=== PATIENT | male | born 1975 | race Caucasian/White ===

== ENCOUNTER → 2017-04-22 15:09 | Outpatient (CLI) | payer OTHER, SELFPAY ==
[2017-04-23 09:50] LABS: Vitamin B12 647 pg/mL (211-911); Vitamin D,25 Hydroxy 24.6 ng/mL (29.95-100.01)
== END ==
PROVIDERS: Family Provider Family Medicine; PCP Family Medicine; Visit Provider Family Medicine
DX: R53.83 Other fatigue (principal); E55.9 Vitamin D deficiency, unspecified
CPT/HCPCS: 36415; 82306; 82607

== ENCOUNTER → 2017-12-07 17:25 | Outpatient (CLI) | payer OTHER, SELFPAY ==
--- NOTE | 2017-12-07 17:27 | RAD_ITS ---
STUDY: X-RAY CHEST REASON FOR EXAM: Male, 42 years old. Gastritis TECHNIQUE: Frontal and lateral views of the chest. COMPARISON: None. FINDINGS: The lungs are clear and expanded. There is no demonstrated pleural abnormality. Normal size heart. Normal mediastinum and brad. Normal visualized pulmonary arteries. Normal visualized aortic arch and descending thoracic aorta. Normal visualized thoracic spine. Normal visualized ribs, clavicles, and shoulders. There is no demonstrated abnormality of the visualized soft tissue structures of the upper abdomen. RAD/Chest PA and Lateral IMPRESSION: Normal x-ray examination of the chest. Electronically Signed: Ephraim Del Rosario MD at 23:46 EDT , Service support ,
== END ==
PROVIDERS: Family Provider Family Medicine; PCP Family Medicine; Referring Provider Family Medicine; Visit Provider Family Medicine
DX: K29.70 Gastritis, unspecified, without bleeding (principal)
CPT/HCPCS: 71046

== ENCOUNTER → 2018-01-03 08:07 | Outpatient (CLI) | payer OTHER, SELFPAY ==
--- NOTE | 2018-01-03 08:30 | RAD_ITS ---
STUDY: AIR-CONTRAST UPPER GI SERIES. REASON FOR EXAM: Male, 42 years old. Upper midline abdominal pain for 6 months. FLUOROSCOPY TIME (if supplied): (1:06) minutes/seconds. 20 Spot images were obtained. TECHNIQUE: The patient ingested barium. Multiple images of the esophagus, stomach and duodenum were obtained. COMPARISON: None. FINDINGS: The esophagus is unremarkable. There is no evidence of gastroesophageal reflux. No evidence of obstruction. The stomach and duodenum are unremarkable. There is no evidence of ulceration. No mass lesion is present. RAD/Upper GI Series Only IMPRESSION: Unremarkable air-contrast upper GI series. Electronically Signed: Marques Rodriguez MD at 8:56 EST Tel [phone], Service support ,
== END ==
PROVIDERS: Family Provider Family Medicine; PCP Family Medicine; Referring Provider Family Medicine; Visit Provider Family Medicine
DX: K29.70 Gastritis, unspecified, without bleeding (principal)
CPT/HCPCS: 74246

== ENCOUNTER → 2018-03-02 08:51 | Outpatient (CLI) | payer OTHER, SELFPAY ==
--- NOTE | 2018-03-02 08:56 | US_ITS ---
STUDY: ABDOMINAL ULTRASOUND - RIGHT UPPER QUADRANT REASON FOR VISIT: Male, 42 years old. Abdominal pain for 6 months. TECHNIQUE: Ultrasound evaluation of the right upper quadrant was performed with real-time and static wilson-scale imaging. TECHNICAL QUALITY: Adequate. COMPARISON: None. FINDINGS: Liver: The liver measures 14.6 cm. There is increased echogenicity consistent with fatty infiltration. Focal fatty sparing is seen in the region of the gallbladder fossa. The bile ducts are within normal limits. There is hepatic color flow. The direction of portal flow is hepatopetal. There is no demonstrated mass lesion. Gallbladder: Normal distended gallbladder. The gallbladder wall measures 2.8 mm. There is a negative sonographic Desouza's sign. There is no pericholecystic fluid. There is a solitary echogenic gallstone within the gallbladder. This measures 1.2 cm. Common Bile Duct (C.B.D.): The common bile duct measures 2.1 mm. Pancreas: There is nonvisualization of the pancreas due to overlying bowel gas. Right Kidney: Normal size of the right kidney. The right kidney measures 11.8 cm x 5.9 cm x 6.9 cm. Normal renal cortex. The right cortex measures 2.1 cm. There is no demonstrated renal mass or cyst. There is no right hydronephrosis. US/Abdomen Limited IMPRESSION: Fatty infiltration of the liver with focal fatty sparing. Solitary gallstone. Electronically Signed: Marques Rodriguez MD at 15:48 EST Tel [phone], Service support ,
--- OUTSIDE RECORDS SUMMARY | 2018-05-07 00:04 | XMS RPT_ITS ---
:1975 Author Organization OHIP Care Team Providers Name Role Phone Choco Bojorquez Attending Unavailable Choco Bojorquez Referring Unavailable Choco Bojorquez Primary Care Unavailable Choco Bojorquez Attending Unavailable Choco Bojorquez Referring Unavailable Choco Bojorquez Primary Care Unavailable Choco Bojorquez Attending Unavailable Choco Bojorquez Referring Unavailable Choco Bojorquez Primary Care Unavailable Choco Bojorquez Attending Unavailable Choco Bojorquez Referring Unavailable Choco Bojorquez Primary Care Unavailable Choco Bojorquez Attending Unavailable Choco Bojorquez Referring Unavailable Choco Bojorquez Primary Care Unavailable PROBLEMS PROBLEMS DATE TYPE CONDITION / ATTENDING STATUS SOURCE CODE 03/02/2018 Unknown K29.70 - Natalya Bojorquez [place] Gastritis, [facility] unspecified, Hospital without Repository bleeding / K29.70(ICD-10) PROCEDURES PROCEDURES No Procedure Records FoundRESULTS RESULTS HEPATOBILLIARY IMG Observed: 03/09/2018 Status: F Source: [place] W/PHARM INT 12:23 PM [facility] REPOSITORY [facility] Imaging Services [address] [place] [address] Hepatobilliary Img w/Pharm Int MR#: [id number] Acct: [id number] Name: ERA LOPEZ Rep #: [id number] : 1975 M 42 From: Favio Ford DO PCP: Choco Bojorquez MD Status: REG CLI Study: Hepatobilliary Img w/Pharm Int Date of Exam: 03/09/18 Exam# [id number] Ordering Dr: Riki Bojorquez MD CLINICAL: 42-year-old male with reported history of abdominal pain. RADIONUCLIDE HEPATOBILIARY SCINTIGRAPHY COMPARISON: Abdominal ultrasound report 03/02/2018 FINDINGS: Following the intravenous administration of 5.5 mCi of 99m Tc Mebrofenin, hepatobiliary images reveal: 1. Relatively prompt and homogeneous radiopharmaceutical concentration is noted by a normal sized liver. No parenchymal defects are identified. 2. Gallbladder activity is identified at 30 minutes post radiopharmaceutical administration. 3. Small intestinal tract is observed at 30 minutes following tracer injection. 4. Washout of the radiopharmaceutical by the hepatic parenchyma appears qualitatively normal. Cholecystokinin (0.02 ug/kg) was administered intravenously over a 30-minute period. The post CCK gallbladder ejection fraction calculated at 31 minutes following Cholecystokinin administration was noted to be 28.0 % (normal greater than 35%). NM/Hepatobilliary Img w/Pharm Int IMPRESSION: 1. ABNORMAL 99m Tc Mebrofenin hepatobiliary imaging examination with Cholecystokinin. A. A gallbladder ejection fraction calculated to be less than 35% following the administration of Cholecystokinin is consistent with the presence of functional hepatobiliary disease (gallbladder and/or sphincter of Oddi dyskinesia) and/or organic hepatobiliary disease (chronic acalculous cholecystitis and/or cystic duct syndrome) in patients with intermediate to high pretest probabilities of hepatobiliary illness. (Janet Hercules et al, Journal of Nuclear Medicine 32:1695, 1990). Electronically Signed: Favio DO Logan at 10:34 EST Tel , Service support , CC: Choco Bojorquez MD Aids Social Worker: Signed ABDOMEN LIMITED Observed: 03/02/2018 Status: F Source: [employer] 8:56 AM [facility] REPOSITORY [facility] Imaging Services [address] [place] [address] Abdomen Limited MR#: [id number] Acct: [id number] Name: ERA LOPEZ Rep #: [id number] : 1975 M 42 From: Marques Rodriguez MD PCP: Choco Bojorquez MD Status: REG CLI Study: Abdomen Limited Date of Exam: 03/02/18 Exam# [id number] Ordering Dr: Riki Bojorquez MD STUDY: ABDOMINAL ULTRASOUND - RIGHT UPPER QUADRANT REASON FOR VISIT: Male, 42 years old. Abdominal pain for 6 months. TECHNIQUE: Ultrasound evaluation of the right upper quadrant was performed with real-time and static wilson-scale imaging. TECHNICAL QUALITY: Adequate. COMPARISON: None. FINDINGS: Liver: The liver measures 14.6 cm. There is increased echogenicity consistent with fatty infiltration. Focal fatty sparing is seen in the region of the gallbladder fossa. The bile ducts are within normal limits. There is hepatic color flow. The direction of portal flow is hepatopetal. There is no demonstrated mass lesion. Gallbladder: Normal distended gallbladder. The gallbladder wall measures 2.8 mm. There is a negative sonographic Desouza's sign. There is no pericholecystic fluid. There is a solitary echogenic gallstone within the gallbladder. This measures 1.2 cm. Common Bile Duct (C.B.D.): The common bile duct measures 2.1 mm. Pancreas: There is nonvisualization of the pancreas due to overlying bowel gas. Right Kidney: Normal size of the right kidney. The right kidney measures 11.8 cm x 5.9 cm x 6.9 cm. Normal renal cortex. The right cortex measures 2.1 cm. There is no demonstrated renal mass or cyst. There is no right hydronephrosis. US/Abdomen Limited IMPRESSION: Fatty infiltration of the liver with focal fatty sparing. Solitary gallstone. Electronically Signed: Marques Rodriguez MD at 15:48 EST Tel [phone], Service support , CC: Choco Bojorquez MD Aids Social Worker: Signed UPPER GI SERIES Observed: 01/03/2018 Status: F Source: [facility] 8:13 AM [facility] REPOSITORY [facility] Imaging Services [address] [place] [address] [place] [address] Upper GI Series Only MR#: [id number] Acct: [id number] Name: JOHNMARIA ELENAE Hernandez Rep #: [id number] : 1975 M 42 From: Marques Rodriguez MD PCP: Choco Bojorquez MD Status: REG CLI Study: Upper GI Series Only Date of Exam: 01/03/18 Exam# [id number] Ordering Dr: Riki Bojorquez MD STUDY: AIR-CONTRAST UPPER GI SERIES. REASON FOR EXAM: Male, 42 years old. Upper midline abdominal pain for 6 months. FLUOROSCOPY TIME (if supplied): (1:06) minutes/seconds. 20 Spot images were obtained. TECHNIQUE: The patient ingested barium. Multiple images of the esophagus, stomach and duodenum were obtained. COMPARISON: None. FINDINGS: The esophagus is unremarkable. There is no evidence of gastroesophageal reflux. No evidence of obstruction. The stomach and duodenum are unremarkable. There is no evidence of ulceration. No mass lesion is present. RAD/Upper GI Series Only IMPRESSION: Unremarkable air-contrast upper GI series. Electronically Signed: Marques Rodriguez MD at 8:56 EST Tel [phone], Service support , CC: Choco Bojorquez MD Aids Social Worker: Signed CHEST PA AND LATERAL Observed: 12/07/2017 Status: F Source: [place] 5:27 PM [facility] REPOSITORY [facility] Imaging Services [address] [place] [address] Chest PA and Lateral MR#: [id number] Acct: [id number] Name: ERA LOPEZ Rep #: [id number] : 1975 M 42 From: Ephraim Del Rosario MD PCP: Choco Bojorquez MD Status: REG CLI Study: Chest PA and Lateral Date of Exam: 12/07/17 Exam# [id number] Ordering Dr: Riki Bojorquez MD STUDY: X-RAY CHEST REASON FOR EXAM: Male, 42 years old. Gastritis TECHNIQUE: Frontal and lateral views of the chest. COMPARISON: None. FINDINGS: The lungs are clear and expanded. There is no demonstrated pleural abnormality. Normal size heart. Normal mediastinum and brad. Normal visualized pulmonary arteries. Normal visualized aortic arch and descending thoracic aorta. Normal visualized thoracic spine. Normal visualized ribs, clavicles, and shoulders. There is no demonstrated abnormality of the visualized soft tissue structures of the upper abdomen. RAD/Chest PA and Lateral IMPRESSION: Normal x-ray examination of the chest. Electronically Signed: Ephraim Del Rosario MD at 23:46 EDT , Service support , CC: Choco Bojorquez MD Aids Social Worker: Signed VITAMIN B12 Collected: 04/22/2017 Status: F Source: [place] 3:14 PM [facility] REPOSITORY Order Comment: Order Date: 04/20/17 Order Info: 2132-9 - B12 Order Info: [id number] - VITD25 TYPE CODE TESTS RESULT OUT OF RANGE REFERENCE UNITS LAB L503.0105 211-911 pg/mL Normal Vitamin B12 647 Performed By: #### L503.0105, L506.1000 #### [facility] [address] [place], [address] VITAMIN D,25 HYDROXY Collected: 04/22/2017 Status: F Source: [place] 3:14 PM [facility] REPOSITORY Order Comment: Order Date: 04/20/17 Order Info: 2132-9 - B12 Order Info: 44859-8 - VITD25 TYPE CODE TESTS RESULT OUT OF REFERENCE UNITS RANGE LAB L506.1000 29.95-100.01 ng/mL Low Vitamin D 24.6 25-OH Result Comment: Vitamin D 25(OH) Status Range Deficiency <20 ng/mL (50nmol/L) Insuffciency 20 - 30 ng/mL (50 - 75 nmol/L) Sufficiency 30 - 100 ng/mL (75 - 250 nmol/L) Toxicity >100 ng/mL (>250 nmol/L) Performed By: #### L503.0105, L506.1000 #### [facility] [address] [place], [address] ALLERGIES ALLERGIES No Allergies Records FoundENCOUNTERS ENCOUNTERS ADMIT/DISCHARGE ACCOUNT ADMITTING ENCOUNTER LOCATION SOURCE NUMBER CLASS 03/09/2018 [id number] Ambulatory [place] 8 [facility] ing:NM Repository 03/02/2018 [id number] Ambulatory [place] 0 [facility] ing:US Repository 01/03/2018 [id number] Ambulatory [place] 9 [facility] ing:RAD Repository 12/07/2017 [id number] Ambulatory [place] 8 [facility] ing:MTRAD Repository 04/22/2017 [id number] Ambulatory [place] 5 [facility] ing:MTLAB Repository PAYERS PAYERS ENCOUNTER GUARANTOR PAYER SUBSCRIBER SOURCE 03/09/2018 ERA Ng Primary ERA [id number] Insurance:MEDICAL WALTERSDOB: [facility] [id number] Number: Repository [id number]: 330 [id number] [phone] (HP) Date:4967-06-18VJ [address] [address]OK: 03/09/2018 Secondary NOT GIVENUNK [place] Insurance:SELF PAY [facility] Number: Effective Repository Date:2018-03-08 03/02/2018 ERA R Primary ERA R [place] [id number] Insurance:MEDICAL WALTERSDOB: [facility] [id number] [place] Number: Repository [id number]: 330 [id number] [phone] (HP) Date:0956-60-71LY [address] [address]TD: 03/02/2018 Secondary NOT GIVENUNK [place] Insurance:SELF PAY [facility] Number: Effective Repository Date:2018-02-23 01/03/2018 ERA R Primary ERA R [place] [id number] Insurance:MEDICAL WALTERSDOB: [facility] [id number] [place], [place] Number: Repository [id number]: 330 [id number] [phone] (HP) Date:1438-23-29WY [address] [address]GL: 01/03/2018 Secondary NOT GIVENUNK [place] Insurance:SELF PAY [facility] Number: Effective Repository Date:2017-12-28 12/07/2017 ERA R Primary ERA R [place] [id number] Insurance:MEDICAL WALTERSDOB: [facility] [id number]: Repository [id number]: 330 [id number] [phone] (HP) Date:8116-36-29LR [address] [address]FP: 12/07/2017 Secondary NOT GIVENUNK [place] Insurance:SELF PAY [facility] Number: Effective Repository Date:2017-12-07 04/22/2017 Era R Primary Era R [place] [id number] Insurance:MEDICAL NelytersB: [facility] [id number] Number: Repository [id number]: [phone] [id number] [phone] () Date:2737-07-79CU [address] [place] [address]DM: 04/22/2017 Secondary NOT GIVENUNK [place] Insurance:SELF PAY [facility] Number: Effective Repository Date:2017-04-22
== END ==
PROVIDERS: Family Provider Family Medicine; PCP Family Medicine; Referring Provider Family Medicine; Visit Provider Family Medicine
DX: R10.9 Unspecified abdominal pain (principal)
CPT/HCPCS: 76705

== ENCOUNTER → 2018-03-09 12:21 | Outpatient (CLI) | payer OTHER, SELFPAY ==
--- NOTE | 2018-03-09 12:23 | NM_ITS ---
CLINICAL: 42-year-old male with reported history of abdominal pain. RADIONUCLIDE HEPATOBILIARY SCINTIGRAPHY COMPARISON: Abdominal ultrasound report 03/02/2018 FINDINGS: Following the intravenous administration of 5.5 mCi of 99m Tc Mebrofenin, hepatobiliary images reveal: 1. Relatively prompt and homogeneous radiopharmaceutical concentration is noted by a normal sized liver. No parenchymal defects are identified. 2. Gallbladder activity is identified at 30 minutes post radiopharmaceutical administration. 3. Small intestinal tract is observed at 30 minutes following tracer injection. 4. Washout of the radiopharmaceutical by the hepatic parenchyma appears qualitatively normal. Cholecystokinin (0.02 ug/kg) was administered intravenously over a 30-minute period. The post CCK gallbladder ejection fraction calculated at 31 minutes following Cholecystokinin administration was noted to be 28.0 % (normal greater than 35%). SD/Hepatobilliary Img w/Pharm Int IMPRESSION: 1. ABNORMAL 99m Tc Mebrofenin hepatobiliary imaging examination with Cholecystokinin. A. A gallbladder ejection fraction calculated to be less than 35% following the administration of Cholecystokinin is consistent with the presence of functional hepatobiliary disease (gallbladder and/or sphincter of Oddi dyskinesia) and/or organic hepatobiliary disease (chronic acalculous cholecystitis and/or cystic duct syndrome) in patients with intermediate to high pretest probabilities of hepatobiliary illness. (Janet Hercules et al, Journal of Nuclear Medicine 32:1695, 1990). Electronically Signed: Favio Ford DO at 10:34 EST Tel , Service support ,
--- OUTSIDE RECORDS SUMMARY | 2018-05-11 10:33 | XMS RPT_ITS ---
[...] CODE 03/02/2018 Unknown K29.70 - Natalya Bojorquez [place] Gastritis, [facility] unspecified, Hospital without Repository bleeding / K29.70(ICD-10) PROCEDURES PROCEDURES No Procedure Records FoundRESULTS RESULTS HEPATOBILLIARY IMG Observed: 03/09/2018 Status: F Source: [place] W/PHARM INT 12:23 PM [facility] REPOSITORY [facility] Imaging Services [address] [place] [address] Hepatobilliary Img w/Pharm Int MR#: [id number] Acct: [id number] Name: ERA LOPEZ Rep #: [id number] : 1975 M 42 From: Favio Ford DO PCP: Choco Bojorquez MD Status: REG CLI Study: Hepatobilliary Img w/Pharm Int Date of Exam: 03/09/18 Exam# [id number] Ordering Dr: Riki Bojorquez MD CLINICAL: 42-year-old [...] Service support , CC: Choco Bojorquez MD Sap Functional Analyst: Signed ABDOMEN LIMITED Observed: 03/02/2018 Status: F Source: [place] 8:56 AM [facility] REPOSITORY [facility] Imaging Services [address] [place] [address] Abdomen Limited MR#: [id number] Acct: [id number] Name: ERA LOPEZ Rep #: [id number] : 1975 M 42 From: Marques Rodriguez MD PCP: Choco Bojorquez MD Status: REG CLI Study: Abdomen Limited Date of Exam: 03/02/18 Exam# [id number] Ordering Dr: Riki Bojorquez MD STUDY: ABDOMINAL [...] Marques Rodriguez MD at 15:48 EST Tel [phone], Service support , CC: Choco Bojorquez MD Sap Functional Analyst: Signed UPPER GI SERIES Observed: 01/03/2018 Status: F Source: [facility] 8:13 AM [facility] REPOSITORY [facility] Imaging Services [address] [place] [address] [place] [address] Upper GI Series Only MR#: [id number] Acct: [id number] Name: JOHNMARIA ELENAE Hernandez Rep #: [id number] : 1975 M 42 From: Marques Rodriguez MD PCP: Choco Bojorquez MD Status: REG CLI Study: Upper GI Series Only Date of Exam: 01/03/18 Exam# [id number] Ordering Dr: Riki Bojorquez MD STUDY: AIR-CONTRAST [...] Marques Rodriguez MD at 8:56 EST Tel [phone], Service support , CC: Choco Bojorquez MD Sap Functional Analyst: Signed CHEST PA AND LATERAL Observed: 12/07/2017 Status: F Source: [place] 5:27 PM [facility] REPOSITORY [facility] Imaging Services [address] [place] [address] Chest PA and Lateral MR#: [id number] Acct: [id number] Name: ERA LOPEZ Rep #: [id number] : 1975 M 42 From: Ephraim Del Rosario MD PCP: Choco Bojorquez MD Status: REG CLI Study: Chest PA and Lateral Date of Exam: 12/07/17 Exam# [id number] Ordering Dr: Riki Bojorquez MD STUDY: X-RAY [...] Service support , CC: Choco Bojorquez MD Sap Functional Analyst: Signed VITAMIN B12 Collected: 04/22/2017 Status: F Source: [place] 3:14 PM [facility] REPOSITORY Order Comment: Order Date: 04/20/17 Order Info: 2132-9 - B12 Order Info: 75511-5 - VITD25 TYPE CODE TESTS RESULT OUT OF RANGE REFERENCE UNITS LAB L503.0105 211-911 pg/mL Normal Vitamin B12 647 Performed By: #### L503.0105, L506.1000 #### [facility] [address] [place], [address] VITAMIN D,25 HYDROXY Collected: 04/22/2017 Status: F Source: [place] 3:14 PM [facility] REPOSITORY Order Comment: Order Date: 04/20/17 Order Info: 2132-9 - B12 Order Info: 50691-5 - VITD25 TYPE CODE TESTS RESULT OUT OF REFERENCE UNITS RANGE LAB L506.1000 29.95-100.01 ng/mL Low Vitamin D 24.6 25-OH Result Comment: Vitamin D 25(OH) Status Range Deficiency <20 ng/mL (50nmol/L) Insuffciency 20 - 30 ng/mL (50 - 75 nmol/L) Sufficiency 30 - 100 ng/mL (75 - 250 nmol/L) Toxicity >100 ng/mL (>250 nmol/L) Performed By: #### L503.0105, L506.1000 #### [facility] [address] [place], [address] ALLERGIES ALLERGIES No Allergies Records FoundENCOUNTERS ENCOUNTERS ADMIT/DISCHARGE ACCOUNT ADMITTING ENCOUNTER LOCATION SOURCE NUMBER CLASS 03/09/2018 [id number] Ambulatory [place] 8 [facility] ing:NM Repository 03/02/2018 [id number] Ambulatory [place] 0 [facility] ing:US Repository 01/03/2018 [id number] Ambulatory [place] 9 [facility] ing:RAD Repository 12/07/2017 [id number] Ambulatory [place] 8 [facility] ing:MTRAD Repository 04/22/2017 [id number] Ambulatory [place] 5 [facility] ing:MTLAB Repository PAYERS PAYERS ENCOUNTER GUARANTOR PAYER SUBSCRIBER SOURCE 03/09/2018 ERA Ng Primary ERA [id number] Insurance:MEDICAL WALTERSDOB: [facility] [id number] Number: Repository [address]Zuj: 330 [id number] [phone] (HP) Date:3797-81-05KH [address] [address]VK: 03/09/2018 Secondary NOT GIVENUNK [place] Insurance:SELF PAY [facility] Number: Effective Repository Date:2018-03-08 03/02/2018 ERA R Primary ERA R [place] [id number] Insurance:MEDICAL WALTERSDOB: [facility] [id number] Number: Repository [address]Omm: 330 [id number] [phone] (HP) Date:6266-97-71FN [address] [address]JS: 03/02/2018 Secondary NOT GIVENUNK [place] Insurance:SELF PAY [facility] Number: Effective Repository Date:2018-02-23 01/03/2018 ERA R Primary ERA R [place] [id number] Insurance:MEDICAL WALTERSDOB: [facility] [id number] Number: Repository [id number]: 330 [id number] [phone] (HP) Date:2313-17-08SP [address] [address]KZ: 01/03/2018 Secondary NOT GIVENUNK [place] Insurance:SELF PAY [facility] Number: Effective Repository Date:2017-12-28 12/07/2017 ERA R Primary ERA R [place] [id number] Insurance:MEDICAL WALTERSDOB: [facility] [id number] Number: Repository [address]Clk: 330 [id number] [phone] (HP) Date:0318-79-87FY [address] [address]VQ: 12/07/2017 Secondary NOT GIVENUNK [place] Insurance:SELF PAY [facility] Number: Effective Repository Date:2017-12-07 04/22/2017 Era R Primary Era R [place] [id number] Insurance:MEDICAL NelytersB: [facility] [id number] Number: Repository [id number]: (413) [id number] [phone] () Date:0698-61-99MQ [address] [place] [address]BI: 04/22/2017 Secondary NOT GIVENUNK [place] Insurance:SELF PAY [facility] Number: Effective Repository Date:2017-04-22
== END ==
PROVIDERS: Family Provider Family Medicine; PCP Family Medicine; Referring Provider Family Medicine; Visit Provider Family Medicine
DX: R10.9 Unspecified abdominal pain (principal)
CPT/HCPCS: 78227; A9537; J2805

== ENCOUNTER → 2018-03-22 15:39 | Outpatient (CLI) | payer OTHER, SELFPAY ==
[2018-03-17 15:44] VITALS: BMI 39.3
[2018-03-22 17:31] LABS: Absolute Lymphocyte Count 1.95 X10^3/ul (0.83-4.51); Absolute Neutrophil Count 2.9 X10^3/uL (2.0-7.7); Basophil# 0.02 X10^3/uL; Basophil% 0.4 % (0-1); Eosinophil# 0.11 X10^3/uL; Hematocrit 45.7 % (40-54); Hemoglobin 15.7 g/dl (13.0-16.5); Lymphocyte # 1.95 X10^3/ul (4.0); Lymphocyte % 36.2 % (19-41); Mean Corp Hgb Conc 34.4 g/gl (32-36); Mean Corpuscular Hgb 30.1 pg (27.0-32.0); Mean Corpuscular Volume 87.7 fL (80-94); Mean Platelet Vol. 12.4 fl (6.2-12.0); Monocyte# 0.41 X10^3/uL; Monocyte% 7.6 % (0-10); Neutrophil # 2.88 X10^3/uL (2.7-7.7); Neutrophil % 53.4 % (47-70); Platelet Count 174 K/mm3 (150-450); RBC Distribution Width CV 13.3 % (11.6-14.6); RBC Distribution Width SD 42.6 fl (35.1-43.9); Red Blood Count 5.21 M/mm3 (4.6-6.2); White Blood Count 5.4 K/mm3 (4.4-11.0)
[2018-03-22 17:35] LABS: POSITIVE COUNT NO; POSITIVE DIFFERENTIAL NO; POSITIVE MORPHOLOGY NO
[2018-03-22 17:56] LABS: ALB/GLOB Ratio 1.2 RATIO (0.9-2.4); AST(SGOT) 18 U/L (15-37); Alanine Aminotransfer ALT/SGPT 41 U/L (16-61); Albumin, Serum 4.2 g/dL (3.2-5.0); Alkaline Phosphatase 53 U/L (45-117); Anion Gap 10 (5-15); BUN 7 mg/dL (7-18); BUN/Creat Ratio 7.7 RATIO (10-20); Chloride 105 mmol/L (98-107); Creatinine, Serum 0.92 mg/dL (0.70-1.30); EST Glomerular Filtration Rate 97 mL/min (>60); Est Glom Filt Rate - Afr Amer 118 mL/min (>60); Globulin 3.5 g/dL (2.2-4.2); Glucose 84 mg/dL (74-106); Potassium 3.7 mmol/L (3.5-5.1); Protein, Total 7.7 g/dL (6.4-8.2); Sodium Level 141 mmol/L (136-145)
== END ==
PROVIDERS: Family Provider Family Medicine; PCP Family Medicine; Referring Provider Family Medicine; Visit Provider Family Medicine
DX: R10.9 Unspecified abdominal pain (principal)
CPT/HCPCS: 36415; 80053; 85025

== ENCOUNTER 2018-04-14 07:20 | Day surgery (SDC) | payer OTHER, SELFPAY ==
[2018-04-01 08:45] VITALS: BMI 39.3
[2018-04-05 15:39] VITALS: BMI 39.3
[2018-04-14] VITALS (7 sets, daily range): BP systolic 116–137; BP diastolic 63–89; PULSE 55–77; RESP 16–18; TEMP 36.3–36.9; O2SAT 92–100; BMI 38.2
--- NOTE | 2018-04-14 07:31 | EKG12_ITS ---
Test Reason : PRE-OP Blood Pressure : / mmHG Vent. Rate : 059 BPM Atrial Rate : 059 BPM P-R Int : 174 ms QRS Dur : 102 ms QT Int : 404 ms P-R-T Axes : 022 -11 010 degrees QTc Int : 399 ms Sinus bradycardia Otherwise normal ECG No previous ECGs available Confirmed by LISA GUTIÉRREZ, KEVIN ([id number]), digital editor RITCHIE IBARRA ([id number]) on 04/19/2018 1:49:01 PM Referred By: Jad Fish Confirmed By:KEVIN GONZALEZ MD
--- NOTE | 2018-04-14 09:00 | GALL_PTH ---
PATIENT: ERA LOPEZ LOC: [facility] U#:[id number] AGE/SX: 42/M ROOM: RE04/14/[address]: Dr. Jad Fish MD : [id number] BED: DIS: 04/14/2018 SPEC #: [id number] RECD: 04/14/18 14:56 STATUS: PJ REVera #: [id number] BRENNAN: 04/14/18 09:[address]: Jad Fish DEPT: SURGICAL PATHOLOGY RECD BY: Adalid Villegas ENTERED: 04/15/18 11:25 SP TYPE: DANIEL ALICIA DR: Dr. Choco Bojorquez MD Tissues: Gallbladder, NOS Procedures: Surgery Specimen Level III HEADER OPERATION: Laparoscopic cholecystectomy with IOC PRE-OP DIAGNOSIS: Chronic cholecystitis TISSUE SUBMITTED: Gallbladder MICROSCOPIC DIAGNOSIS Gallbladder, cholecystectomy: Chronic cholecystitis, cholelithiasis and cholesterolosis. SJ:amarjit 04/18/18 MICROSCOPIC DESCRIPTION Slides are reviewed. GROSS DESCRIPTION Received is one container labeled with the patient's name and designated gallbladder. The specimen consists of a gallbladder measuring 8 cm in length and up to 3 cm in diameter. The external surface is pink-godinez, smooth and glistening for the most part. Focally it is granular, hemorrhagic and contains cautery artifact. The gallbladder contains two zwmtn-ownghumoy-fmjcv mulberry stones each measuring 1.5 cm in greatest dimension. The mucosa is bile-stained and without any mass lesions. The gallbladder wall measures up to 1 cm in thickness. Increased amount of subserosal fat is noted. Geotechnical Laboratory Technician sections from the gallbladder and the cystic duct are submitted in one cassette. / SJ:rg 04/15/18 TC:3 [facility]: [id number]
--- NOTE | 2018-04-14 09:00 | RAD_ITS ---
STUDY: INTRAOPERATIVE CHOLANGIOGRAM. REASON FOR EXAM: Male, 42 years old. Laparoscopic cholecystectomy. FLUOROSCOPY TIME (if supplied): (0:10) minutes/seconds TECHNIQUE: An intraoperative quadrant was performed by the surgeon. Imaging was submitted. COMPARISON: None. FINDINGS: The common bile duct is not dilated. No intraluminal filling defect is seen. There is free flow of contrast into the duodenum. RAD/Cholangiogram/ O R,Initial IMPRESSION: Unremarkable intraoperative cholangiogram. Electronically Signed: Marques Rodriguez, at 15:04 EST , Service support ,
[2018-04-14] MEDS: Bupiv/Epi 0.25% 30 ML Vial (09:45)
--- NOTE | 2018-04-14 10:03 | PCM.OPRPT ---
Problem List (1) Gallstone Status: Acute Qualifiers: Cholecystitis presence: with cholecystitis Cholecystitis acuity: chronic Biliary obstruction: without biliary obstruction Qualified Code(s): K80.10 - Calculus of gallbladder with chronic cholecystitis without obstruction Report of Operation Date of Procedure: 04/14/18 Pre-Operative Diagnosis: Chronic cholecystitis and cholelithiasis Post-Operative Diagnosis: Same Surgery/Procedure Performed:: Laparoscopic cholecystectomy with cholangiogram Specimen's removed: Gallbladder and contents Description of Procedure: After obtaining informed consent patient was brought back to the operating room. General anesthesia was induced. The abdomen was prepped and draped in usual sterile fashion. A small midline incision was made superior to the umbilicus and deepened to the level of fascia. The fascia was elevated and incised. Next the peritoneum was elevated and incised in the same fashion. Finger sweep was performed and the Mehta trocar was placed into the abdomen. The balloon was inflated. The abdomen was inflated to 15 mmHg. Next a camera was introduced into the abdomen and the abdomen was inspected. Next under direct visualization three 5-mm ports were placed one subxiphoid and 2 subcostal. Next the gallbladder was elevated and retracted toward the right shoulder. The peritoneum was stripped from the gallbladder. There was inflammation at the the infundibular portion of the gallbladder. The infundibulum was located and retracted laterally. Next the triangle of Calot was dissected and the cystic duct and cystic artery were identified. Cholangiograms were performed. The Manuel clamp was used to clamp across the infundibulum and the catheter needle was inserted into the gallbladder. Under fluoroscopy contrast was instilled into the gallbladder and the common duct, cystic duct as well as proximal hepatic ducts were identified. There was good filling of the duodenum. There were no filling defects noted in the common bile duct. The clamp was removed as well as the needle and the infundibulum was grasped once more. Three hemolock clips were placed across the cystic duct. The cystic duct was then divided leaving 2 clips on the stump. The cystic artery was clipped and divided in the same fashion. The hook cautery was then used to take the gallbladder off of the gallbladder bed. Hemostasis was obtained. Gallbladder fossa was irrigated and no active bleeding or bile leakage was noted. Next the camera switched to a 5 mm camera and introduced in the subxiphoid port. An Endopouch bag was placed through the umbilical port and the gallbladder was placed into it. The gallbladder was then removed through the umbilical incision. The camera was then reinserted through the umbilical port. The gallbladder fossa was inspected once more and noted to be hemostatic with no leaking bile. The abdomen was suctioned dry. The 5 mm ports were removed under direct visualization. The umbilical port was then removed and the air was removed from the abdomen. Next using an 0 Vicryl suture the umbilical fascia was closed in a pyzzmz-fe-ubhfw fashion. The umbilical port site was irrigated local anesthetic was administered to all the incisions. All the incisions were closed with interrupted subcuticular 4-0 Monocryl sutures followed by Steri-Strips and dressings. The patient was awoken and taken to PACU in stable condition. - Admit VTE Documentation VTE Mechan Device Prophylaxis: SCD's
--- NOTE | 2018-04-14 10:10 | DCINST_ITS ---
Discharge Diet: Light diet - advance as tolerated Discharge Activity: Return to Normal Activity, May Not Drive - for 2-3 days or while taking narcotic pain medicataions., - - Do not drive, work heavy equipment or sign legal documents for 24 hours. May shower in (days): 1 - with the bandage in place. Additional Activity Instructions:: Pain medication may cause nausea. You should typically eat light foods as you take your pain medications. Pain medication may also cause constipation. If this is a problem for you, please discuss with your doctor. Call your doctor if your incision/area has: Continuous Slow Oozing, Sudden Increased Bleeding, Increased Pain/ Swelling, Increased Redness, Foul Smelling Discharge, Fever of 101 or Higher Call your doctor if you observe: Fever of 101 or Higher Suture Line Care: Avoid Pulling/Pushing, Avoid Pinching/Bending Additional Dressing/Incision Instructions:: Leave operative bandaids on for 2 days. When you remove dressing, leave Steri-Strips on until your follow-up appointment, or until the Steri-Strips fall off on their own. Allergies/Adverse Reactions: Allergies codeine Allergy (Mild, Verified 04/14/18 07:55) Unknown Penicillins Allergy (Mild, Verified 04/14/18 07:55) Unknown Medications to take at Discharge lisinopril 10 mg-hydrochlorothiazide 12.5 mg tablet 1 tab PO DAILY 04/05/18 Oxycodone HCl/Acetaminophen [Percocet 5/325] 1 - 2 tablet PO Q4H PRN PRN 7 Days #40 tablet 04/14/18 The following prescriptions were given: Oxycodone HCl/Acetaminophen [Percocet 5/325] 1 - 2 tablet PO Q4H PRN PRN 7 Days #40 tablet PRN Reason: Pain Primary Care Physician: Riki Bojorquez MD [Primary Care Provider] - Test Results: Test results from this visit will be discussed in further detail at your follow- up appointment, if applicable. Please Follow Up With: Jad Fish MD When: Please call to schedule 2 week follow up appointment. [phone]
== END 2018-04-14 13:38 | disposition home or self-care (01) ==
LOC: SDC 07:20 → AC 07:21
PROVIDERS: Family Provider Family Medicine; PCP Family Medicine; Referring Provider Surgery; Visit Provider Surgery
PROC: (CPT 47610; principal; 2018-04-14 08:40)
DX: K80.12 Calculus of gallbladder with acute and chronic cholecystitis without obstruction (principal); I10 Essential (primary) hypertension; Z79.899 Other long term (current) drug therapy; Z87.891 Personal history of nicotine dependence; G47.30 Sleep apnea, unspecified
CPT/HCPCS: 00790; 47563; 74300; 76000; 88304; 93005; J7120; J2405

== ENCOUNTER → 2019-09-22 10:04 | Outpatient (CLI) | payer OTHER, SELFPAY ==
[2018-04-14 07:55] VITALS: BMI 38.2
[2019-09-22 13:08] LABS: ALB/GLOB Ratio 1.1 RATIO (0.9-2.4); AST(SGOT) 13 U/L (15-37); Alanine Aminotransfer ALT/SGPT 30 U/L (16-61); Albumin, Serum 3.8 g/dL (3.2-5.0); Alkaline Phosphatase 43 U/L (45-117); Anion Gap 3 (5-15); BUN 13 mg/dL (7-18); BUN/Creat Ratio 13.5 RATIO (10-20); Calcium,Total 8.7 mg/dL (8.5-10.1); Chloride 108 mmol/L (98-107); Cholesterol 147 mg/dL (200); Creatinine, Serum 0.96 mg/dL (0.70-1.30); EST Glomerular Filtration Rate 91 mL/min (>60); Est Glom Filt Rate - Afr Amer 110 mL/min (>60); Globulin 3.6 g/dL (2.2-4.2); Glucose 88 mg/dL (74-106); High Density Lipoprotein 48 mg/dL; Potassium 4.5 mmol/L (3.5-5.1); Protein, Total 7.4 g/dL (6.4-8.2); Sodium Level 140 mmol/L (136-145); Triglycerides 95 mg/dL; Very Low Density Lipoprotein 19 mg/dL (5-40); Vitamin B12 483 pg/mL (211-911); Vitamin D,25 Hydroxy 56.2 ng/mL
== END ==
PROVIDERS: PCP Family Medicine; Referring Provider Family Medicine; Visit Provider Family Medicine
DX: I10 Essential (primary) hypertension (principal); D51.9 Vitamin B12 deficiency anemia, unspecified; E55.9 Vitamin D deficiency, unspecified
CPT/HCPCS: 36415; 80053; 80061; 82306; 82607

== ENCOUNTER → 2020-10-10 15:02 | Outpatient (CLI) | payer OTHER, SELFPAY ==
[2020-10-10 19:46] LABS: M R Staph aureus DNA By PCR Negative (Negative); Probe Check PASS; Specimen Processing Control PASS
== END ==
PROVIDERS: PCP Family Medicine; Referring Provider Internal Medicine Pulmonary Disease; Visit Provider Internal Medicine Pulmonary Disease
DX: H66.90 Otitis media, unspecified, unspecified ear (principal)
CPT/HCPCS: 87641

== ENCOUNTER → 2020-11-15 09:53 | Outpatient (CLI) | payer OTHER, SELFPAY ==
[2020-11-15 12:40] LABS: Anion Gap 7 (5-15); BUN 15 mg/dL (7-18); BUN/Creat Ratio 14.2 RATIO (10-20); Calcium,Total 9.2 mg/dL (8.5-10.1); Chloride 105 mmol/L (98-107); Cholesterol 158 mg/dL (200); Creatinine, Serum 1.06 mg/dL (0.70-1.30); EST Glomerular Filtration Rate 81 mL/min (>60); Est Glom Filt Rate - Afr Amer 98 mL/min (>60); Glucose 92 mg/dL (74-106); High Density Lipoprotein 43 mg/dL; Potassium 3.6 mmol/L (3.5-5.1); Sodium Level 140 mmol/L (136-145); Triglycerides 102 mg/dL; Very Low Density Lipoprotein 20 mg/dL (5-40)
== END ==
PROVIDERS: PCP Family Medicine; Referring Provider Family Medicine; Visit Provider Family Medicine
DX: I10 Essential (primary) hypertension (principal)
CPT/HCPCS: 36415; 80048; 80061

== ENCOUNTER → 2022-02-02 | Outpatient (CLI) | payer OTHER, SELFPAY ==
[2022-02-02 12:20] LABS: Vitamin B12 594 pg/mL (211-911)
[2022-02-02 12:35] LABS: Anion Gap 8 (5-15); BUN 14 mg/dL (7-18); BUN/Creat Ratio 15.2 RATIO (10-20); Calcium,Total 9.1 mg/dL (8.5-10.1); Chloride 107 mmol/L (98-107); Cholesterol 151 mg/dL (200); Creatinine, Serum 0.92 mg/dL (0.70-1.30); EST Glomerular Filtration Rate 94 mL/min (>60); Est Glom Filt Rate - Afr Amer 114 mL/min (>60); Glucose 98 mg/dL (74-106); High Density Lipoprotein 44 mg/dL; Potassium 4.2 mmol/L (3.5-5.1); Sodium Level 139 mmol/L (136-145); Triglycerides 97 mg/dL; Very Low Density Lipoprotein 19 mg/dL (5-40)
== END | disposition home or self-care (01) ==
LOC: MTLAB 09:27
PROVIDERS: PCP Family Medicine; Referring Provider Family Medicine; Visit Provider Family Medicine
DX: I10 Essential (primary) hypertension (principal); N52.9 Male erectile dysfunction, unspecified; D51.9 Vitamin B12 deficiency anemia, unspecified; E55.9 Vitamin D deficiency, unspecified
CPT/HCPCS: 36415; 80048; 80061; 82306; 82607; 84403

== ENCOUNTER → 2023-03-15 | Outpatient (CLI) | payer BC, SELFPAY | END | disposition home or self-care (01) | PROVIDERS: PCP Family Medicine; Referring Provider Otolaryngology; Visit Provider Otolaryngology | DX: H92.10 Otorrhea, unspecified ear (principal) | CPT/HCPCS: 87070; 87075; 87186; 87205 ==

== ENCOUNTER → 2023-09-21 | Outpatient (CLI) | payer BC, SELFPAY ==
[2023-09-21 12:16] LABS: Vitamin B12 516 pg/mL (211-911); Vitamin D,25 Hydroxy 83.8 ng/mL
[2023-09-21 12:26] LABS: Anion Gap 6 (5-15); BUN 18 mg/dL (7-18); Calcium,Total 9.6 mg/dL (8.5-10.1); Chloride 106 mmol/L (98-107); Cholesterol 176 mg/dL (200); EST Glomerular Filtration Rate 69 mL/min (>60); Est Glom Filt Rate - Afr Amer 84 mL/min (>60); Glucose 94 mg/dL (74-106); High Density Lipoprotein 53 mg/dL; Potassium 4.2 mmol/L (3.5-5.1); Sodium Level 139 mmol/L (136-145); Triglycerides 109 mg/dL; Very Low Density Lipoprotein 22 mg/dL (5-40)
== END | disposition home or self-care (01) ==
LOC: MTLAB 09:45
PROVIDERS: PCP Family Medicine; Referring Provider Family Medicine; Visit Provider Family Medicine
DX: E55.9 Vitamin D deficiency, unspecified (principal); D51.9 Vitamin B12 deficiency anemia, unspecified; I10 Essential (primary) hypertension
CPT/HCPCS: 36415; 80048; 80061; 82306; 82607

== ENCOUNTER 2024-10-06 10:32 | Outpatient (CLI) | payer BC, SELFPAY ==
[2024-10-06 13:01] LABS: Anion Gap 12 (5-15); BUN 14 mg/dL (4-19); BUN/Creat Ratio 13.5 RATIO (10-20); Calcium,Total 9.8 mg/dL (7.6-11.0); Carbon Dioxide 24.6 mmol/L (21.0-32.0); Chloride 102 mmol/L (98-108); Cholesterol 166 mg/dL (<=200); Glucose 98 mg/dL (70-99); Low Density Lipoprotein Calc. 92 mg/dL; Potassium 4.5 mmol/L (3.3-5.1); Triglycerides 78 mg/dL; Very Low Density Lipoprotein 16 mg/dL (5-40); Vitamin D,25 Hydroxy 42.4 ng/mL (30-100); cholesterol:hdl ratio screen 2.85
== END 2024-10-06 23:59 | disposition home or self-care (01) ==
PROVIDERS: PCP Family Medicine; Referring Provider Family Medicine; Visit Provider Family Medicine
DX: I10 Essential (primary) hypertension (principal)
CPT/HCPCS: 36415; 80048; 80061; 82306